=== PATIENT | male | born 1950 | race Caucasian/White ===

== ENCOUNTER 2024-05-07 07:58 | Observation (INO) ==
--- NOTE | 2024-04-04 13:35 | PAT Medication Instructions ---
Medication Instructions Date of Service April 04, 2024 Home Medications aspirin 81 mg capsule 81 mg PO QAM atorvastatin 10 mg tablet 10 mg PO QAM glipizide 10 mg tablet 10 mg PO QAM linagliptin 5 mg tablet (Tradjenta) 5 mg PO QAM metformin 1,000 mg tablet 1,000 mg PO BID metoprolol succinate 100 mg tablet,extended release 24 hr 100 mg PO QPM omeprazole 40 mg capsule,delayed release 40 mg PO BID sacubitril 24 mg-valsartan 26 mg tablet (Entresto) 1 tab PO BID tamsulosin 0.4 mg capsule 0.4 mg PO QAM apixaban 5 mg tablet (Eliquis) 5 mg PO BID furosemide 20 mg tablet 20 mg PO DAILY PRN leg edema MEDICATION INSTRUCTIONS: ASK your prescriber and surgeon aspirin 81 mg capsule 81 mg PO QAM apixaban 5 mg tablet (Eliquis) 5 mg PO BID (for spinal anesthesia: will need to hold Eliquis/apixaban at least 72 hours prior to surgery) DO NOT take the morning of surgery glipizide 10 mg tablet 10 mg PO QAM linagliptin 5 mg tablet (Tradjenta) 5 mg PO QAM sacubitril 24 mg-valsartan 26 mg tablet (Entresto) 1 tab PO BID metformin 1,000 mg tablet 1,000 mg PO BID furosemide 20 mg tablet 20 mg PO DAILY PRN leg edema Take morning of surgery With a small sip of water, OTHERWISE NOTHING TO EAT OR DRINK AFTER MIDNIGHT: tamsulosin 0.4 mg capsule 0.4 mg PO QAM atorvastatin 10 mg tablet 10 mg PO QAM omeprazole 40 mg capsule,delayed release 40 mg PO BID Take evening before surgery sacubitril 24 mg-valsartan 26 mg tablet (Entresto) 1 tab PO BID metformin 1,000 mg tablet 1,000 mg PO BID metoprolol succinate 100 mg tablet,extended release 24 hr 100 mg PO QPM omeprazole 40 mg capsule,delayed release 40 mg PO BID Other Notes If you have any questions please call us at [phone] or [phone] or [phone] or [phone]
--- NOTE | 2024-04-12 09:54 | Anesthesiology Consultation ---
Date of Service April 12, 2024 Assessment & Plan (1) Encounter for pre-operative examination: - Check BSG AM DOS - Infectious disease screening: Per assessment on 04/12/24: No known recent infectious disease contacts or current infectious disease symptoms. - Outpatient joint assessment: Pt currently scheduled for inpatient pathway. If surgeon requests review for outpatient joint pathway, patient is not recommended candidate for outpatient joint program from anesthesia standpoint based on available information. - Apixaban/Eliquis instructions: patient made aware that for neuraxial anesthesia, Apixaban/Eliquis needs to be held 72 hours prior to surgery. Patient voiced understanding/will check if okay with prescriber. - Cardiology visit (03/22/24): "HPI: This is a 73 year old male with history of mild CAD, s/p aortic valve replacement in 2020, nonischemic cardiomyopathy, LVEF 35 to 40%.. 02/16/2024 visit: Patient is not physically active due to knee pain, he notices lower extremity edema recently. He went to PCPs office and was noted to have atrial fibrillation, he was started on Eliquis.. Unspecified atrial fibrillation.. Newly diagnosed.. Heart failure, unspecified.. Cardiomyopathy, unspecified.. Bioprosthetic valve.. Recommendations: Increase Entresto dose.. Continue all other medications.. Low-salt diet.. Check blood pressure on regular basis.. Fluid restriction.. WESLY cardioversion for A-fib.. Follow Up: 1 month" - Pending: * Awaiting cardiology ordered WESLY cardioversion report ([facility], 04/17). * Note written to cardiology to make them aware of upcoming surgery- Awaiting cardiology response/clearance (Dr. Dumas/[facility]). Chart Review Chart Review: Patient seen in Pre Admission Testing Teaching & Discussion Pre-Anesthesia Teaching/Discussion Notes: Instructed NPO after midnight before surgery,except medications with 15 cc of water. Medication instructions provided according to the PAT guidelines. History Surgery Operation Date: 05/07/24 08:00 Proposed Procedures p Right Total Knee Arthroplasty - Joe Pulido DO Height/Weight Height: 6 ft 2 in Weight: 101.9 kg Allergies Allergy/AdvReac Type Severity Reaction Status Date / Time No Known Allergies Allergy Verified 04/02/24 14:03 Medications Home Medications Medication Instructions Recorded Confirmed Last Taken aspirin 81 mg capsule 81 mg PO QAM 11/06/23 09/09/24 11/08/23 atorvastatin 10 mg tablet 10 mg PO QAM 05/30/23 04/02/24 06/01/23 glipizide 10 mg tablet 10 mg PO QAM 05/30/23 04/02/24 06/01/23 linagliptin 5 mg tablet (Tradjenta) 5 mg PO QAM 05/30/23 04/02/24 06/01/23 metformin 1,000 mg tablet 1,000 mg PO BID 05/30/23 04/02/24 06/01/23 metoprolol succinate 100 mg 100 mg PO QPM 05/30/23 04/02/24 06/02/23 06:30 tablet,extended release 24 hr omeprazole 40 mg capsule,delayed 40 mg PO BID 05/30/23 04/02/24 06/02/23 06:30 release sacubitril 24 mg-valsartan 26 mg 1 tab PO BID 05/30/23 04/02/24 06/01/23 tablet (Entresto) tamsulosin 0.4 mg capsule 0.4 mg PO QAM 05/30/23 04/02/24 06/01/23 apixaban 5 mg tablet (Eliquis) 5 mg PO BID 04/02/24 04/02/24 Unknown furosemide 20 mg tablet 20 mg PO DAILY PRN leg edema 04/02/24 04/02/24 Unknown Past Medical History Medical History Aortic valve disease s/p AVR 2020 Echo 01/2024: Bioprosthetic aortic valve- No evidence of significant stenosis, no regurgitation Atrial fibrillation Dx 01/2024, started on Eliquis Follows with Dr. Dumas/[facility] Pt has a procedure scheduled at [facility] (WESLY cardioversion for A.fib?) BPH (benign prostatic hyperplasia) Cardiomyopathy Non-ischemic Diabetes Type 2, NIDDM GERD (gastroesophageal reflux disease) History of heart failure Hyperlipidemia Hypertension Learning disability assists Reading/writing limitations (Can read and write name, can only read a few words) Osteoarthritis Exercise / Class Metabolic Activity III < 4 Walking/Shop/Light housework Past Family History Family History Brother Colorectal cancer Other No family history of adverse response to anesthesia Past Surgical History Surgical History (Updated 04/12/24 @ 10:02 by Gracie Leone) H/O aortic valve replacement [facility] Teri Friedman (2020) H/O left cataract extraction History of esophagogastroduodenoscopy (EGD) Hx of colonoscopy Hx of hand surgery 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 Physical Exam Vital Signs BP 126/84 P 73 TEMP 97.8 SP02 96%RA RESP 16 Physical Full cervical extension range of motion. Full TMJ range of motion. TMD 3 finger breaths Mallampati Score II Dentition: full upper denture, edentulous Lungs: clear throughout to auscultation Cardiac: regular rate, irregularly irregular rhythm, II-III/ systolic murmur Spine: normal Carotid arteries: negative bruit Extremities: no LE edema Lab Results Anesthesia Preop Results Results Anesthesia Widget: WBC 8.38 K/ul (4.8-10.8) 04/12/24 Hgb 12.1 g/dl (14.0-18.0) L 04/12/24 Hct 37.9 % (42.0-52.0) L 04/12/24 Plt 172 K/uL (130-400) 04/12/24 Na 137 mmol/L (136-145) 04/12/24 K 4.6 mmol/L (3.5-5.1) 04/12/24 Cl 105 mmol/L (98-107) 04/12/24 CO2 25 mmol/L (21-32) 04/12/24 BUN 16 mg/dl (6-23) 04/12/24 Creat 1.15 mg/dl (0.6-1.4) 04/12/24 Glucose Level 183 mg/dl (70-99(Fasting)) H 04/12/24 PT 12.7 Seconds (9.0-12.0) H 04/12/24 PTT 31 Seconds (21-31) 04/12/24 INR 1.2 (0.9-1.1) H 04/12/24 HA1c 7.8 % (4.5-5.6) H 04/12/24 Blood Type O Negative 04/12/24 Antibody Screen NEGATIVE 04/12/24 Testing Electrocardiogram Date: 02/16/24 A. fib. 97bpm. LAD. Ventricular conduction delay. Low QRS voltage in precordial leads. Echo 02/21/24* Chest X-Ray Date: 04/12/24 FINDINGS: Cardiomegaly with cardiac valvular prosthesis. Median sternotomy with numerous fractured wires. Atherosclerosis of the aorta. No pneumothorax, pleural effusion, airspace consolidation or pulmonary edema. Spondylitic spurring of the spine. IMPRESSION: Cardiomegaly without acute process. Echocardiogram Date: 02/21/24 EF 35%. RWMA cannot be excluded. Severe LAD. RAD. Bioprosthetic aortic valve- No evidence of significant stenosis, no regurgitation. Moderate to severe TR. IVC dilated. Other Testing Holter monitor Date: 03/07/24 Prevailing rhythm is atrial fibrillation with HR varting between 39 and 188 with average of 103/min, the longest R-R interval 2.5 seconds. Infrequent PVCs.
--- NOTE | 2024-05-03 11:47 | History & Physical Report ---
Date of Service May 03, 2024 Assessment & Plan (1) Osteoarthritis of right knee: We will proceed with a right total knee arthroplasty. Postoperatively he will be started on aspirin for DVT prophylaxis and kept overnight in the hospital for postop medical management. He plans to use energy physical therapy upon discharge. History of Present Illness Chief Complaint: Osteoarthritis of the right knee. Primary Care Provider: Drake Baker PA-C Jez is a pleasant 73-year-old male who has been dealing with chronic increasing bilateral knee pain. He has been treated by another provider in [place] for years. He has had injections of his knees. The injections no longer help. X-rays and clinical examination have been diagnostic for advanced osteoarthritis. After failed conservative treatment, he has elected to proceed with a right total knee arthroplasty. Allergies Allergy/AdvReac Type Severity Reaction Status Date / Time No Known Allergies Allergy Verified 04/02/24 14:03 Home Medications Medication Instructions Recorded Confirmed Type aspirin 81 mg capsule 81 mg PO QAM 05/30/23 04/02/24 History atorvastatin 10 mg tablet 10 mg PO QAM 05/30/23 04/02/24 History glipizide 10 mg tablet 10 mg PO QAM 05/30/23 04/02/24 History linagliptin 5 mg tablet (Tradjenta) 5 mg PO QAM 05/30/23 04/02/24 History metformin 1,000 mg tablet 1,000 mg PO BID 05/30/23 04/02/24 History metoprolol succinate 100 mg 100 mg PO QPM 05/30/23 04/02/24 History tablet,extended release 24 hr omeprazole 40 mg capsule,delayed 40 mg PO BID 05/30/23 04/02/24 History release sacubitril 24 mg-valsartan 26 mg 1 tab PO BID 05/30/23 04/02/24 History tablet (Entresto) tamsulosin 0.4 mg capsule 0.4 mg PO QAM 05/30/23 04/02/24 History apixaban 5 mg tablet (Eliquis) 5 mg PO BID 04/02/24 04/02/24 History furosemide 20 mg tablet 20 mg PO DAILY PRN leg edema 04/02/24 04/02/24 History Past Med/Surg History Problem List Encounter for pre-operative examination Osteoarthritis of right knee BPH loc w urin obs/LUTS Urinary retention Hyperlipidemia Hypertension Type 2 diabetes mellitus Medical History Aortic valve disease s/p AVR 2020 Echo 01/2024: Bioprosthetic aortic valve- No evidence of significant stenosis, no regurgitation History of heart failure Cardiomyopathy Non-ischemic Osteoarthritis Hyperlipidemia Hypertension BPH (benign prostatic hyperplasia) Atrial fibrillation Dx 01/2024, started on Eliquis Follows with Dr. 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 Hx of nasal polypectomy H/O aortic valve replacement [facility] (2020) Family History Brother Colorectal cancer Other No family history of adverse response to anesthesia Social History Smoking Status: Former smoker Tobacco Type: Cigarettes and Smokeless Tobacco (Dip or Chew) Second Hand Exposure: No; Do You Dip or Chew Tobacco: No (Quit years ago); Hx Alcohol Use: No Hx Substance Use: No Preferred Language: [place]er Communication Ability: Impaired Communication Ability Comment: can read and write name, can only read a few words, assists Customs And Border Protection Inspector Required: No Beliefs That Will Affect Care: None Current Living Situation: Spouse Assistive Devices: Denture - Upper Review of Systems All systems reviewed & are unremarkable except as noted in HPI & below. Physical Exam On physical examination of the right knee, he has a varus deformity. He is tenderness palpation of the distal medial femoral condyle and over the medial joint line. Constitutional WD/WN, vitals as above Eyes PERRL, conjunctivae normal, anicteric sclerae ENMT external ear and nose normal, oropharynx normal Neck trachea midline, no thyromegaly Respiratory normal respiratory effort Cardiovascular RRR, no murmur, no edema Gastrointestinal (Abdomen) normal bowel sounds, soft, nontender, no hepatosplenomegaly Psychiatric A+Ox3, euthymic affect Results & Data Results & Data Laboratory Results . Diagnostic Findings X-rays of the right knee show advanced osteoarthritis with joint space narrowing, osteophyte formation, and [id number] tubulation. PG Care Time/CCT Total # of Minutes Spent Total Time Spent with Patient: Total time spent is greater than 50% in coordination of care (as documented) at patient's floor/unit and/or counseling patient: Coding Level of Care Code None Diagnoses Osteoarthritis of right knee M17.11
[~2024-05-07 07:58] MED LIST: BUPIVACAINE 0.5 % 5 MG/1 ML PF 10ML VIAL ONE; ROPIVACAINE 0.5% 5 MG/ML 30 ML VIAL ONE
[2024-05-07] MEDS ORDERED: MIDAZOLAM HCL 1 MG/ML 2ML VIAL ONE (08:32)
[2024-05-07] MEDS ORDERED: fentaNYL citrate PF 100 MCG/2 ML VIAL ONE (08:32)
[2024-05-07] MEDS: ACETAMINOPHEN 500 MG TAB PO SCH ×2 (08:45→14:40)
[2024-05-07] MEDS: GABAPENTIN 300 MG CAP PO SCH (08:45)
[2024-05-07] MEDS: dexAMETHasone**PF** 10 MG/ML VIAL IV SCH (08:45)
[2024-05-07] MEDS: LR 15ML/HR IV SCH (08:46)
[2024-05-07] MEDS: FAMOTIDINE 20 MG TAB PO SCH (08:46)
[2024-05-07] MEDS: LR 60ML/HR IV SCH (08:56)
--- NOTE | 2024-05-07 09:05 | History & Physical Bridge Note ---
Date of Service May 07, 2024 History & Physical Bridge Note I have examined the patient, reviewed the History & Physical and in the interval since the performance of the History & Physical I have noted the following changes of clinical significance: no changes noted
[2024-05-07] MEDS ORDERED: ONDANSETRON INJ 2 MG/ML 2 ML VIAL IV PRN ×2 (09:43→13:55)
[2024-05-07] MEDS ORDERED: ePHEDrine sulfate 50 MG/ML AMP IV PRN (09:43)
[2024-05-07] MEDS ORDERED: fentaNYL citrate PF 100 MCG/2 ML VIAL IV PRN (09:43)
[2024-05-07] MEDS ORDERED: ATROPINE SULFATE 0.1 MG/ML 10ML SYR IV PRN (09:43)
[2024-05-07] MEDS: TRANEXAMIC ACID 1,000 MG **IV Pre-op IV SCH (09:57)
[2024-05-07] MEDS: ceFAZolin 2000MG 2,000 MG/15 ML SYR IV SCH ×2 (10:12→17:25)
[2024-05-07] MEDS ORDERED: PROPOFOL IV EMULSION 10 MG/ML 20 ML VIAL IV ONE ×2 (10:27→11:08)
[2024-05-07] MEDS ORDERED: LIDOCAINE 2% 2 ML VIAL/AMP(20MG/ML) INFIL ONE (10:27)
[2024-05-07] MEDS ORDERED: ONDANSETRON INJ 2 MG/ML 2 ML VIAL ONE (10:27)
[2024-05-07] MEDS: ORTHO JOINT ANESTHETIC ONE (10:50)
[2024-05-07] MEDS: ROPIV 0.5% 246mg, Ketorolac 30mg, EPINEPHrine 0.5mg in NSS INFIL SCH (10:55)
[2024-05-07] MEDS: TRANEXAMIC ACID 1,000 MG **IV Intra-op IV SCH (11:06)
--- NOTE | 2024-05-07 11:11 | Operative Report ---
PG Post Operative Report Pre & Post Diagnosis Operation Date: 05/07/24 10:00 Pre-Op Diagnosis: Osteoarthritis of right knee Post-Op Diagnosis: Osteoarthritis of right knee I identified the patient and participated in the time-out.: Yes Procedure Operation Date: 05/07/24 10:00 Actual Procedures p Right Total Knee Arthroplasty(Right) - Joe Pulido DO Surgeon Joe Pulido DO Pelletizer Operator Joe Brooks PA-C Estimated Blood Loss 30 Findings Consistent with Post-Op Diagnosis Specimens Right femoral and tibial bone Description of Procedure Implants used: I used a Daniel Persona total knee arthroplasty system with a size 8 standard PS femur, E tibia, 31 oval patella, and a size 16 CPS polyethylene bearing. All components were cemented in place with Biomet cement. Boris arrived [facility] for the above procedure. He was seen in the preoperative holding area and the operative extremity was identified and signed. He was given a preoperative antibiotic, TXA, a spinal anesthetic and an adductor nerve block. He was taken back to the operating room and laid on the table in supine position. He was given basic sedation. The operative knee was then prepped and draped in sterile fashion. A timeout was done, and the patient and the operative extremity was properly identified. A midline incision was made directly over the patella. Dissection was taken down to the extensor mechanism. A subvastus arthrotomy was used. The medial retinaculum was released and the fat pad was mostly excised. The knee was flexed and the ACL, PCL, and meniscus were removed. A drill was sent down the center of the femoral canal followed by an intramedullary valentin. Off that valentin a distal femoral cutting block was placed. 9 mm was resected off the distal femur at 5 of valgus. A posterior referencing AP sizing guide was then placed on the distal femur. The femur measured to be a size 8. 2 drill holes were placed in 3 of external rotation. A 4-in-1 cutting block was then impacted into place. Anterior, posterior, and chamfer cuts were then made. The proximal tibia was then exposed. An external tibial alignment guide was placed. A tibial cut guide was then anchored in place and the proximal tibia was then resected. The posterior aspect of the knee was then opened up and any additional meniscus fragments and osteophytes were removed. The tibia measured to be a size E. The tibial plate was then placed in the appropriate rotation and the tibia was drilled and punched. Trial components were then placed. I used a size 16 CPS polyethylene insert. The knee was brought through a full range of motion and felt to be stable. The peg holes for the femoral component were then drilled. The patella was then everted and 9 mm was resected off the posterior aspect of the patella. The patella measured to be a size 31 oval. 3 peg holes were then drilled. A trial patella was placed. The knee was once again brought through a full range of motion and felt to be stable. Trial components were then removed. The surrounding soft tissues were injected with 100 cc of an orthopedic pain control cocktail. All components were then cemented into place with Biomet cement. The final polyethylene insert was then snapped into place. Once cement was dry the tourniquet was deflated. Hemost asis was obtained. A dilute betadyne lavage was then done for 3 minutes. The joint was then irrigated with normal saline solution. The subvastus arthrotomy was then closed with #1 Vicryl suture. The skin was closed with 2-0 Vicryl, 3- 0V lock suture, and maida. A soft compressive dressing was placed. He was then transferred to a hospital bed and taken to the postanesthesia care unit in stable condition. He tolerated the procedure well. Joe Brooks PA-C, was present for the entire procedure. He was critical for patient positioning, prepping, draping, retraction exposure, wound closure and application of sterile dressing. I attest to the content of the Intraoperative Record and any orders documented therein. Any exceptions are noted below.
--- NOTE | 2024-05-07 12:20 | Anesthesiology Progress Note ---
Date of Service May 07, 2024 Anesthesia Post Procedure Vital Signs Vital Signs: Temp Pulse Resp BP Pulse Ox O2 Del Method O2 Flow Rate 05/07/24 12:15 58 L 17 110/65 94 Room Air 05/07/24 12:05 61 12 125/67 95 Room Air 05/07/24 11:55 68 13 120/68 97 Room Air 0 05/07/24 11:45 62 12 117/69 100 Oxymask 4 05/07/24 11:35 62 12 118/65 99 Oxymask 4 05/07/24 11:28 36.3 C L 63 15 118/65 95 Oxymask 4 05/07/24 08:24 36.4 C L 81 18 137/93 97 Room Air Notes Mental Status: alert / awake / arousable Patient Amnestic to Procedure: Yes Nausea / Vomiting: adequately controlled Pain: adequately controlled Airway Patency, RR, SpO2: stable & adequate BP & HR: stable & adequate Hydration State: stable & adequate Neuraxial Anesthesia: was administered Anesthetic Complications: no major complications apparent
[2024-05-07] MEDS ORDERED: PHENYLEPHRINE 100MCG/ML 10ML SYR IV ONE (12:22)
[2024-05-07] MEDS ORDERED: ePHEDrine sulfate 50 MG/5 ML SYR ONE (12:22)
--- NOTE | 2024-05-07 12:47 | XRay Report ---
TWO VIEWS RIGHT KNEE CLINICAL HISTORY: Postoperative examination. FINDINGS: AP and crosstable lateral portable views of the right knee are obtained. A right knee arthr oplasty is in near anatomic alignment. There has been undersurface remodeling of the patella. No acut e fracture is seen. There are expected postoperative changes around the knee including skin clips, s oft tissue edema, and subcutaneous gas. IMPRESSION: Expected postoperative changes status post right knee arthroplasty. No acute fracture is seen. ACT 112: Negative or not required by law. Electronically signed by: Trent Fonseca M.D. 05/07/2024 12:45 PM
[2024-05-07] MEDS ORDERED: METOCLOPRAMIDE HCL INJ 5 MG/ML 2 ML VIAL IV PRN (13:55)
[2024-05-07] MEDS ORDERED: NALOXONE HCL 0.4 MG/1 ML VIAL/CARP IV PRN (13:55)
[2024-05-07] MEDS ORDERED: oxyCODONE HCL IR 5 MG TAB (IMMEDIATE RELEASE) PO PRN (13:55)
[2024-05-07] MEDS ORDERED: MAGNESIUM HYDROXIDE SUSP 30 ML UDC PO PRN (13:55)
[2024-05-07] MEDS ORDERED: FUROSEMIDE 20 MG TAB PO PRN (13:55)
[2024-05-07] MEDS ORDERED: HYDROmorphone INJ 0.5 MG/0.5 ML SYR IV PRN (13:55)
[2024-05-07] MEDS ORDERED: bisacodyL 10 MG SUPP PR PRN (13:55)
[2024-05-07] MEDS ORDERED: PHARMACY GLYCEMIC MGMT CONSULT PRN (13:55)
[2024-05-07] MEDS: SODIUM CHLORIDE 0.9% 1,000 ML IV SCH (14:40)
[2024-05-07] MEDS: LANTUS PER UNIT CHARGE SC ONE ×2 (14:41→22:07)
[2024-05-07] MEDS: INSULIN ASPART PER UNIT CHARGE SC SCH (14:41)
--- NOTE | 2024-05-07 14:42 | Pharmacy Report ---
Pharmacy Glycemic Short Note 2 - Date of Service May 07, 2024 - Glycemic Short BSG Results (Last 24 hours): 05/07/24 05/07/24 08:50 14:19 POC Glucose 140 H 222 H OUTPATIENT ANTIDIABETIC REGIMEN: * Metformin 1g PO BID * Tradjenta 5mg PO daily * Glipizide 10mg PO BID * A1c 7.8% 04/12/24 ASSESSMENT: * 73 YO M, s/p RTKA, type 2 DM, received 10mg IV Dexamethasone pre-op - now with steroid induced hyperglycemia post op. * Will give basal insulin to cover steroid effects now and PRN HS, and tight NovoLog parameters at this time. * Loosen/adjust insulin dosing as steroids wear off. PLAN FOR INPATIENT GLYCEMIC CONTROL: * Hold outpatient oral diabetes medications * Basal insulin * Lantus 30 units SQ x1 now, then 15 units HS for BSG > 180mg/dl - further dosing tomorrow morning if needed * Bolus insulin * NovoLog per scale ACHS or Q6hrs while NPO * Goal Range: Low 110 mg/dL - High 140 mg/dL * Correction Factor: 15 mg/dL/unit * Nutritional / Prandial insulin per carb ratio of 1 unit per 5 grams CHO consumed
[2024-05-07] MEDS: SENNA 8.6 MG TAB PO SCH (20:50)
[2024-05-07] MEDS: VALSARTAN/SACUBITRIL 26/24MG TAB PO SCH (20:50)
[2024-05-07] MEDS: METOPROLOL SUCC 50MG EXT REL TAB PO SCH (20:50)
[2024-05-07] MEDS: DOCUSATE SODIUM 100 MG CAP PO SCH (20:50)
[2024-05-08 07:12] VITALS: PULSE 63; RESP 20; TEMP 98.1; O2SAT 95
--- NOTE | 2024-05-08 07:24 | Orthopedic Progress Note ---
Date of Service May 08, 2024 Assessment & Plan (1) Status post right knee replacement: Overall he is doing very well. He is not having much pain in the right knee. He will be seen by physical therapy today for ambulation and range of motion exercises. The nursing staff can change his dressing after physical therapy. He is on aspirin for DVT prophylaxis. He can be discharged home later today. He will follow-up with orthopedics in 2 weeks. Francisco Escalante was seen and examined at bedside this morning. Overall is doing very well. He is not having much pain in the right knee. He has been up and ambulating to the bathroom. He has no complaints.. Review of Systems All systems reviewed & are unremarkable except as noted in HPI & below. Physical Exam On physical examination of the right knee, the dressing is clean and dry. His leg is out full extension. He has active dorsiflexion plantarflexion of the right ankle.. Results & Data Results & Data Laboratory Results . Diagnostic Findings Postoperative x-rays of the right knee show the prosthesis to be in anatomic alignment without any evidence of fracture complication, or loosening.. PG Care Time/CCT Total # of Minutes Spent Total Time Spent with Patient: Total time spent is greater than 50% in coordination of care (as documented) at patient's floor/unit and/or counseling patient: Coding Level of Care Code 19149 Post Operative Follow-Up Diagnoses Status post right knee replacement Z96.651
--- NOTE | 2024-05-08 07:25 | Discharge Summary ---
Date of Service May 08, 2024 Admission HPI (Per Admitting) Jez is a pleasant 73-year-old male who has been dealing with chronic increasing bilateral knee pain. He has been treated by another provider in [place] for years. He has had injections of his knees. The injections no longer help. X-rays and clinical examination have been diagnostic for advanced osteoarthritis. After failed conservative treatment, he has elected to proceed with a right total knee arthroplasty. Admission Exam (Per Admitting) On physical examination of the right knee, he has a varus deformity. He is tenderness palpation of the distal medial femoral condyle and over the medial joint line. Principal Diagnosis Same as "Discharge Diagnosis" noted below under Discharge Instructions. Discharge Exam On physical examination of the right knee, the dressing is clean and dry. His leg is out full extension. He has active dorsiflexion plantarflexion of the right ankle.. Discharge Data Procedures Performed Operation Date: 05/07/24 10:00 Actual Procedures p Right Total Knee Arthroplasty(Right) - Joe Pulido DO Ordered Studies 05/07/24 05:00 US - OR guided needle placemen Routine Hospital Course (1) Status post right knee replacement: On May 07, 2024 Boris arrived at [facility] and underwent a right knee replacement without complication. He had a spinal anesthetic. Postoperatively he was started on aspirin for DVT prophylaxis and transferred to the general orthopedic floors. His hospital course was uneventful. On postop day #1, his vital signs were stable and his pain was well-controlled. He was able to participate well with physical therapy doing ambulation and range of motion exercises. He was then discharged to home. He will follow-up orthopedics in 2 weeks. PG Care Time/CCT Total # of Minutes Spent Total Time Spent with Patient: Total time spent is greater than 50% in coordination of care (as documented) at patient's floor/unit and/or counseling patient: Discharge Plan Discharge Items Patient Disposition: Home - Self-Care Reason For Visit: Right Knee Degenerative Joint Disease Discharge Diagnosis: Right knee replacement Activity: Per Instructions section Non-emergency contact: Surgeon Call non-emergency contact if: your wound has increased redness and your wound has increased drainage Follow-up/Referrals: Drake Baker PA-C [Primary Care Provider] - Diet: Regular Addtl Attending Provider Instructions: Activity and Therapy Recommendations: * If you are using [facility] then therapy will be provided at your home until they feel you have accomplished all of your goals. * If you are using [facility] then Physical Therapy will be provided until they feel you are ready to start Outpatient Physical Therapy. * If you are not using home therapy then Outpatient Physical Therapy should start about 3-5 days from your day of surgery. Therapy will last about 6-10 weeks * It is important not to put a pillow under your knee when you are relaxing or sleeping. It is just as important to make sure you are getting your knee perfectly straight as it is to regain your knee bend. * You were shown a series of exercises in the hospital. Do these exercises three times each day including the exercises you were shown in physical therapy. * Get up and walk several times each day. For the first four weeks, try not to stand or walk for more than one hour at a time. If you do stand or walk for more than one hour, you will not hurt anything, but your leg will likely swell. * As you feel comfortable, you may change from the walker or crutches to a cane and then to independent walking. Medications: * Narcotic You will likely be sent home from the hospital with a prescription for the narcotic pain medication that worked best throughout your stay. * Cefadroxil -take the antibiotic twice a day for 10 days to help prevent infection. * Continue your Eliquis as prescribed. * Other medications may be prescribed for specific circumstances. If you have any questions, please call the office at . * Resume previous home medications unless otherwise instructed TEDs/Elastic Stockings: The white elastic stockings help limit swelling and prevent blood clots from forming in your legs.~ The more you wear them, the more they work. Wear them for six weeks. Dressing Care: The dressing can be changed after physical therapy on postop day #1. Daily dry dressing changes for a few days, especially if the incision is still draining some. If the incision is not draining then you may leave the maida open to air. If there is a little bit of drainage or if the maida are getting stuck on your clothing then cover the incision with a dry dressing. The maida will be removed at your 2 week follow-up appointment. Showering: You may shower 5 days from the day of surgery as long as the incision is no longer draining. You may shower with the maida exposed. Let soapy water run over the maida and pat them dry. Do not scrub or soak the incision. Diet: You may resume your previous diet. Things To Watch For: * Drainage from the incision site that occurs more than one week after your surgery. * Increased redness at the incision site. * Fever above 102 degrees Fahrenheit. * Unusual chest pain or shortness of breath. * Call [facility] at with any of the above problems Follow-Up Visit: Follow-up with Dr. Pulido's PA (Joe Brooks) 2-3 weeks after your day of surgery. He will remove your maida and answer any questions. If you have any additional questions or concerns, Dr Pulido is usually in the office at the same time and will be available An appointment was probably scheduled when you signed-up for surgery in the office. If you have any questions call Office Instructions: More detailed instructions as well as Frequently Asked Questions were provided in a folder by our office when you signed-up for surgery. Please review these instructions when you get home. If you have any further questions or concerns, please feel free to call the office at [phone] Pending Studies at Discharge: No Stand-Alone Forms: My [facility], Smoking Cessation Medications and DC Order Prescriptions: New oxycodone 5 mg Tablet 5 mg PO Q4H PRN (Reason: pain) Qty: 30 0RF cefadroxil 500 mg capsule 500 mg PO BID 10 Days Qty: 20 0RF Continued atorvastatin 10 mg tablet 10 mg PO QAM glipizide 10 mg Tablet 10 mg PO QAM metoprolol succinate 100 mg tablet extended release 24 hr 100 mg PO QPM omeprazole 40 mg Capsule,Delayed Release(Dr/Ec) 40 mg PO BID tamsulosin 0.4 mg Capsule 0.4 mg PO QAM metformin 1,000 mg Tablet 1,000 mg PO BID Tradjenta 5 mg tablet 5 mg PO QAM Entresto 24-26 mg tablet 1 tab PO BID aspirin 81 mg Capsule 81 mg PO QAM Eliquis 5 mg Tablet 5 mg PO BID furosemide 20 mg Tablet 20 mg PO DAILY PRN (Reason: leg edema) Discharge Orders: Discharge Order (Routine); Ordered 05/08/24 Ordered By: Joe Pulido Admission Data Admit Date/Time: 05/07/24 11:36 Attending Provider: Joe Pulido Admit Provider: Joe Pulido Primary Care Provider: Drake Baker
[2024-05-08] MEDS: MULTIVITAMIN TAB PO SCH (08:02)
[2024-05-08] MEDS: ATORVASTATIN 10 MG TAB PO SCH (08:02)
[2024-05-08] MEDS: ASPIRIN 81 MG ECTAB PO SCH (08:02)
[2024-05-08] MEDS: APIXABAN 5 MG TABLET PO SCH (08:02)
[2024-05-08] MEDS: TAMSULOSIN HCL 0.4 MG CAP PO SCH (08:02)
[2024-05-08 09:59] VITALS: BP 124/73
== END 2024-05-08 12:26 | disposition home or self-care (01) ==
LOC: 3E 07:58 → ASU 07:58

== ENCOUNTER 2024-05-31 18:10 | Observation (INO) ==
--- NOTE | 2024-05-31 19:12 | Emergency Department Note ---
Impression & Plan BRADSHAW (dyspnea on exertion), Elevated brain natriuretic peptide (BNP) level, Dizziness, Bilateral edema of lower extremity ED Provider Note ED Provider Note NAME: GILDA ROMANO AGE:73 SEX: Male : 1950 ARRIVES VIA: Private vehicle INFORMANT: Patient ED PROVIDER(s): Nakia Freeman DO CHIEF COMPLAINT: Upper back pain, lightheadedness, shortness of breath HPI: This is a 73-year-old male presents emergency department with several complaints including upper back pain that began several days ago, intermittent lightheadedness, shortness of breath with any exertion. Patient denies chest pain, abdominal pain, nausea or vomiting, change in urine or change in stools. Patient does have significant past cardiac history and is anticoagulated due to a history of atrial fibrillation. Three weeks ago he did undergo knee surgery with Dr. Pulido, and states he has been feeling well and feels he is healing up from that procedure. He has had slightly increased lower extremity edema since then. He denies missing or skipping any daily doses of his Eliquis or aspirin. Patient denies any prior history of congestive heart failure. States he used to intermittently take a "water pill" at home when his legs to be swollen. 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 He denies any trauma or injury. He denies any known sick contacts. PAST MEDICAL HISTORY:See Below PAST SURGICAL HISTORY:See Below FAMILY HISTORY:See Below SOCIAL HISTORY:See Below HOME MEDICATIONS:See Below ALLERGIES:See Below VITALS:See Below PHYSICAL EXAMINATION: GENERAL: alert, well appearing, well nourished, no distress, non-toxic EYE EXAM: normal conjunctiva, PERRL and EOM's grossly intact OROPHARYNX: no exudate, no erythema, lips, buccal mucosa, and tongue normal and mucous membranes are moist NECK: supple, no nuchal rigidity, no adenopathy, non-tender LUNGS: Clear to auscultation. Normal chest wall mechanics, no w/r/r HEART: no murmurs, S1 normal and S2 normal ABDOMEN: abdomen soft, non-tender, normo-active bowel sounds, no masses, no rebound or guarding. BACK: Back is symmetrical on inspection and there is no deformity, no midline tenderness, no CVA tenderness. SKIN: no rashes, petechiae, orbruising UPPER EXTREMITIES: upper extremities are grossly normal. FROM, nml pulses b/l. LOWER EXTREMITIES: FROM, nml pulses b/l. Healing vertical midline incision noted over the right knee consistent with recent surgery, no significant joint effusion, no crepitus, no surrounding erythema, mild distal lower extremity edema trace to 1+. NEURO EXAM: Normal sensorium, cranial nerves II-XII grossly intact, normal speech, no facial droop,nogross weakness of arms, no gross weakness of legs. Gross sensation intact. No ataxia. Vital Signs: reviewed and remarkable Differential Diagnosis: pneumonia, bronchitis, COPD/Asthma exacerbation, pneumothorax, pulmonary embolism, congestive heart failure, acute coronary syndrome, as well as others were considered MEDICAL DECISION MAKING: This is a 73-year-old male presents emergency department due to concern for increased lower extremity edema, dyspnea on exertion, and lightheadedness. Patient with significant cardiac history. Upon my bedside evaluation he states all symptoms had resolved. He was afebrile and hemodynamically stable, no increased work of breathing or hypoxia noted. Patient with a well-appearing and healing incision noted over the right knee from recent surgery. Labs drawn and sent, IV established, EKG and chest ray performed at bedside interpreted by me and patient monitored on telemetry. Patient's labs and imaging reassuring however he was noted to have an elevated BNP. Patient states he has not used his as needed diuretic in several months despite increased lower extremity edema since undergoing knee surgery 3 weeks ago. He did denies missing or skipping any doses of his anticoagulation. He denies bleeding from any source. Patient initially reported feeling improved here and was ambulatory with steady gait without any hypoxia or lightheadedness. He was given a dose of furosemide here in states he did urinate several times. I did discuss diuretic dosing and close follow-up with on-call cardiology who was in agreement with the plan. Upon further discussion with patient and at bedside, I did unhook the patient and allowed him to ambulate further around the room, he became abruptly dizzy, short of breath, and we assisted him back into bed. In light of this, I do not feel discharge and close outpatient follow-up would be reasonable at this time especially given we are headed into the weekend. I discussed with he and his additional inpatient monitoring and they are in agreement. Case discussed with the hospitalist team for additional evaluation and management. Consultation(s): 0200: Discussed with Dr. Davis. Agrees if patient comfortable and no resp distress, could take furosemide daily for 1 week and have a recheck by PCP or cardiology. 0235: [facility] additional evaluation and management. ER Treatment Provided: See below Diagnostics Interpreted By Me: -ECG: Atrial fibrillation at 97, leftward axis, normal intervals, no acute ST/T wave changes -Cardiac Monitoring: An order was placed for continuous cardiac monitoring. The monitor shows a rate of 80 with a.fib rhythm. -Laboratory studies: As stated above and show below. -Imaging studies: X-ray Chest: A single view study of the chest was reviewed and was negative for cardiomegaly, focal infiltrate, effusion, pulmonary edema, or wide mediastinum. Triage Nursing Note Reviewed Prior/Outside Records Reviewed -prior echo from January 2024 revealed an ejection fraction of 35% Past Med/Surg History Problem List (Updated 06/01/24 @ 03:45 by Nakia Freeman DO) Bilateral edema of lower extremity (Acute) Dizziness (Acute) Elevated brain natriuretic peptide (BNP) level (Acute) BRADSHAW (dyspnea on exertion) (Acute) Status post right knee replacement (~04/2024) Osteoarthritis of right knee BPH loc w urin obs/LUTS Urinary retention Hyperlipidemia Hypertension Type 2 diabetes mellitus Medical History Aortic valve disease s/p AVR 2020 Echo 01/2024: Bioprosthetic aortic valve- No evidence of significant stenosis, no regurgitation History of heart failure Cardiomyopathy Non-ischemic Osteoarthritis Hyperlipidemia Hypertension BPH (benign prostatic hyperplasia) Atrial fibrillation Dx 01/2024, started on Eliquis Follows with Dr. 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 replacement [facility]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) Family History Brother Colorectal cancer Other No family history of adverse response to anesthesia Social History Smoking Status: Never smoker Tobacco Type: Cigarettes and Smokeless Tobacco (Dip or Chew) Second Hand Exposure: No; Do You Dip or Chew Tobacco: No (Quit years ago); Hx Alcohol Use: No Hx Substance Use: No Preferred Language: Wolof Communication Ability: Effective Communication Ability Comment: can read and write name, can only read a few words, assists 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: No Beliefs That Will Affect Care: None Current Living Situation: Spouse Feels Safe at Home: Yes Assistive Devices: Walker Allergies Allergies Allergy/AdvReac Type Severity Reaction Status Date / Time No Known Allergies Allergy Verified 05/07/24 08:36 Home Meds Home Medications Medication Instructions Recorded Confirmed aspirin 81 mg capsule 81 mg PO QAM 05/30/23 05/07/24 atorvastatin 10 mg tablet 10 mg PO QAM 05/30/23 05/07/24 glipizide 10 mg tablet 10 mg PO QAM 05/30/23 05/07/24 linagliptin 5 mg tablet (Tradjenta) 5 mg PO QAM 05/30/23 05/07/24 metformin 1,000 mg tablet 1,000 mg PO BID 05/30/23 05/07/24 metoprolol succinate 100 mg 100 mg PO QPM 05/30/23 05/07/24 tablet,extended release 24 hr omeprazole 40 mg capsule,delayed 40 mg PO BID 05/30/23 05/07/24 release sacubitril 24 mg-valsartan 26 mg 1 tab PO BID 05/30/23 05/07/24 tablet (Entresto) tamsulosin 0.4 mg capsule 0.4 mg PO QAM 05/30/23 05/07/24 apixaban 5 mg tablet (Eliquis) 5 mg PO BID 04/02/24 05/07/24 furosemide 20 mg tablet 20 mg PO DAILY PRN leg edema 04/02/24 05/07/24 Previous Rx's Medication Instructions Recorded oxycodone 5 mg tablet 5 mg PO Q4H PRN pain #30 tabs 05/07/24 hydrocodone 5 mg-acetaminophen 325 1 tab PO Q6H PRN pain #20 tabs 05/22/24 mg tablet Results & Data (ED) Vital Signs Vital Signs - 24 hr 05/31/24 18:16 05/31/24 18:44 05/31/24 18:45 Pulse Rate 95 H Pulse Rate [Apical] Respiratory Rate 18 Respiratory Effort / Characteristics Non-Labored Respiratory Depth Normal Respiratory Pattern Regular Blood Pressure 103/70 Blood Pressure [Left Arm] Blood Pressure Mean 81 Blood Pressure Mean [Left Arm] Pulse Oximetry 94 Pulse Oximetry [Exercises] Oxygen Delivery Method Room Air Sepsis Recent Fever Within 48 Hours No Sepsis New/Unexplained Change in Mental Status No Sepsis Action Taken by Nursing No Action Required 05/31/24 18:49 05/31/24 19:18 05/31/24 20:36 Pulse Rate 105 H Pulse Rate [Apical] 80 78 Respiratory Rate 16 16 Respiratory Effort / Characteristics Non-Labored Spontaneous Non-Labored Spontaneous Respiratory Depth Normal Normal Respiratory Pattern Regular Regular Blood Pressure Blood Pressure [Left Arm] 124/75 124/69 Blood Pressure Mean Blood Pressure Mean [Left Arm] 91 87 Pulse Oximetry 95 94 Pulse Oximetry [Exercises] Oxygen Delivery Method Room Air Sepsis Recent Fever Within 48 Hours Sepsis New/Unexplained Change in Mental Status Sepsis Action Taken by Nursing 05/31/24 22:10 05/31/24 22:44 06/01/24 00:03 Pulse Rate 79 Pulse Rate [Apical] 79 Respiratory Rate 15 Respiratory Effort / Characteristics Non-Labored Spontaneous Respiratory Depth Normal Respiratory Pattern Regular Blood Pressure Blood Pressure [Left Arm] 123/70 Blood Pressure Mean Blood Pressure Mean [Left Arm] 87 Pulse Oximetry 95 Pulse Oximetry [Exercises] 95 Oxygen Delivery Method Room Air Room Air Sepsis Recent Fever Within 48 Hours Sepsis New/Unexplained Change in Mental Status Sepsis Action Taken by Nursing 06/01/24 00:22 06/01/24 02:30 Pulse Rate Pulse Rate [Apical] 90 82 Respiratory Rate 19 18 Respiratory Effort / Characteristics Respiratory Depth Respiratory Pattern Blood Pressure Blood Pressure [Left Arm] 107/65 117/80 Blood Pressure Mean Blood Pressure Mean [Left Arm] 79 92 Pulse Oximetry 94 95 Pulse Oximetry [Exercises] Oxygen Delivery Method Sepsis Recent Fever Within 48 Hours Sepsis New/Unexplained Change in Mental Status Sepsis Action Taken by Nursing Laboratory Data 05/31/24 18:37 05/31/24 18:37 Lab Results 05/31/24 05/31/24 06/01/24 Range/Units 18:37 18:41 01:34 WBC 9.26 (4.8-10.8) K/ul RBC 4.72 (4.70-6.10) M/uL Hgb 13.0 L (14.0-18.0) g/dl Hct 39.5 L (42.0-52.0) % MCV 83.7 (80.0-100.0) fL MCH 27.5 (25.0-34.0) pg MCHC 32.9 (32.0-36.0) g/dL RDW Std Deviation 47.2 H (36.4-46.3) fL RDW Coeff of Garo 15.7 H (11.5-14.5) % Plt Count 266 (130-400) K/uL MPV 9.9 (9.4-12.4) fL Immature Gran % (Auto) 0.4 % Neut % (Auto) 65.3 % Lymph % (Auto) 23.3 % [place] % (Auto) 8.3 % Eos % (Auto) 2.3 % Baso % (Auto) 0.4 % Neut # (Auto) 6.04 (1.40-6.50) K/uL Lymph # (Auto) 2.16 (1.20-3.40) K/uL [place] # (Auto) 0.77 H (0.11-0.59) K/uL Eos # (Auto) 0.21 (0.00-0.50) K/uL Baso # (Auto) 0.04 (0.00-0.20) K/uL Immature Gran # (Auto) 0.04 (0.01-0.20) K/uL PT 11.5 (9.0-12.0) Seconds INR 1.1 (0.9-1.1) Sodium 137 (136-145) mmol/L Potassium 4.1 (3.5-5.1) mmol/L Chloride 104 (98-107) mmol/L Carbon Dioxide 23 (21-32) mmol/L Anion Gap 10 (3-11) BUN 23 (6-23) mg/dl Creatinine 1.63 H (0.6-1.4) mg/dl Est Cr Clr Drug Dosing Not Reportable eGFR 44.49 BUN/Creatinine Ratio 14.1 (10-20) Glucose 246 H (70-99(Fasting)) mg/dl Calcium 9.3 (8.6-10.3) mg/dl Magnesium 1.5 L (1.7-2.4) mg/dl Total Bilirubin 0.5 (0.2-1.0) mg/dl AST 14 (13-39) U/L ALT 13 (7-52) U/L Alkaline Phosphatase 87 (34-104) U/L Troponin I High Sens 10.3 (0-20) pg/ml B-Natriuretic Peptide 423 H (0-100) pg/ml Total Protein 7.3 (6.0-8.3) gm/dl Albumin 3.8 (3.4-5.0) gm/dl Globulin 3.5 (2.5-4.0) gm/dl Albumin/Globulin Ratio 1.1 (0.9-2) Lipase 55 (11-82) U/L TSH 4.227 (0.300-4.500) uIu/ml Urine Color Yellow Urine Appearance Clear (Clear) Urine pH 5.0 (4.5-7.5) Ur Specific [place] 1.008 (1.000-1.030) Urine Protein Negative (Negative) Urine Glucose (UA) Negative (Negative) Urine Ketones Negative (Negative) Urine Blood Negative (Negative) Urine Nitrite Negative (Negative) Urine Bilirubin Negative (Negative) Urine Urobilinogen Negative (Negative) Ur Leukocyte Esterase Negative (Negative) Adenovirus (PCR) Not Detected (NotDetected) B. pertussis DNA (PCR) Not Detected (NotDetected) B.parapertussis DNA PCR Not Detected (NotDetected) C. pneumoniae DNA (PCR) Not Detected (NotDetected) Coronavirus OC43 (PCR) Not Detected (NotDetected) Coronavirus HKU1 (PCR) Not Detected (NotDetected) Coronavirus 229E (PCR) Not Detected (NotDetected) SARS-CoV-2 (PCR) Not Detected (NotDetected) Coronavirus NL63 (PCR) Not Detected (NotDetected) Human Metapneumovir PCR Not Detected (NotDetected) Influenza Type A (PCR) Not Detected (NotDetected) Influenza Type B (PCR) Not Detected (NotDetected) M. pneumoniae (PCR) Not Detected (NotDetected) Parainfluenza 1 (PCR) Not Detected (NotDetected) Parainfluenza 2 (PCR) Not Detected (NotDetected) Parainfluenza 3 (PCR) Not Detected (NotDetected) Parainfluenza 4 (PCR) Not Detected (NotDetected) RSV (PCR) Not Detected (NotDetected) Entero/Rhino (PCR) Not Detected (NotDetected) Administered Medications Discontinued Medications Furosemide (Furosemide Inj 20 Mg/2 Ml Vial) 20 mg IV ONE ONE Stop: 05/31/24 20:59 Last Admin: 05/31/24 21:31 Dose: 20 mg Documented By: ISABEL Magnesium Sulfate/Dextrose (Magnesium Sulfate / D5w) 1 gm in 100 mls @ 100 mls/hr IV NOW STA Stop: 05/31/24 20:54 Last Infusion: 06/01/24 00:05 Dose: Infused Documented By: Admin: 05/31/24 20:03 Dose: 100 mls/hr Documented By: MED Imaging Data Radiologist's Impression: Chest X-Ray 05/31/24 19:04 Exam(s): XR CXR 1 VIEW EXAM: XR Chest, 1 View CLINICAL HISTORY: sob. TECHNIQUE: Frontal view of the chest. COMPARISON: Chest 2 views 04/12/2024 FINDINGS: Lungs: Minimal curvilinear changes at the left lung base overlying the cardiac silhouette. No focal airspace consolidation. The pulmonary vasculature is unremarkable. Pleural space: Unremarkable. No pneumothorax. No large pleural effusion. Heart: The cardiac silhouette is stable with evidence of aortic valve replacement. Mediastinum: No significant abnormality identified. The trachea is midline. Bones/joints: Stable disruption of several sternal wires, stable. No acute fracture. IMPRESSION: Minimal curvilinear changes at the left lung base overlying the cardiac silhouette, presumed subsegmental atelectasis. No focal airspace consolidation. The pulmonary vasculature is unremarkable. No pleural effusion or pneumothorax. Electronically signed by: Alexi Martinez MD 05/31/24 20:24 PM Discharge Plan Visit Data Chief Complaint: Shortness of Breath/Dyspnea Stated Complaint: SOB, NECK PAIN, BLURRY VISION ED Provider: Nakia Freeman Discharge Problem: BRADSHAW (dyspnea on exertion), Elevated brain natriuretic peptide (BNP) level, Dizziness, Bilateral edema of lower extremity Forms Stand Alone Forms: My [facility] Prescriptions Prescriptions: No Action hydrocodone-acetaminophen 5-325 mg tablet 1 tab PO Q6H PRN (Reason: pain) Qty: 20 0RF atorvastatin 10 mg tablet 10 mg PO QAM glipizide 10 mg Tablet 10 mg PO QAM metoprolol succinate 100 mg tablet extended release 24 hr 100 mg PO QPM omeprazole 40 mg Capsule,Delayed Release(Dr/Ec) 40 mg PO BID tamsulosin 0.4 mg Capsule 0.4 mg PO QAM metformin 1,000 mg Tablet 1,000 mg PO BID Tradjenta 5 mg tablet 5 mg PO QAM Entresto 24-26 mg tablet 1 tab PO BID aspirin 81 mg Capsule 81 mg PO QAM Eliquis 5 mg Tablet 5 mg PO BID furosemide 20 mg Tablet 20 mg PO DAILY PRN (Reason: leg edema) oxycodone 5 mg Tablet 5 mg PO Q4H PRN (Reason: pain) Qty: 30 0RF Referrals Referrals: Drake Baker P[facility] [Primary Care Provider] -
[2024-05-31 19:33] LABS: Alanine Aminotransferase 13 U/L (7-52); Albumin Globulin Ratio 1.1 (0.9-2); Albumin Level 3.8 gm/dl (3.4-5.0); Alkaline Phosphatase 87 U/L (34-104); Anion Gap 10 (3-11); Aspartate Aminotransferase 14 U/L (13-39); BUN Creatinine Ratio 14.1 (10-20); Bilirubin,Total 0.5 mg/dl (0.2-1.0); Blood Urea Nitrogen 23 mg/dl (6-23); Calcium 9.3 mg/dl (8.6-10.3); Carbon Dioxide 23 mmol/L (21-32); Chloride 104 mmol/L (98-107); Globulin 3.5 gm/dl (2.5-4.0); Glucose 246 mg/dl (70-99(Fasting)); Lipase 55 U/L (11-82); Magnesium 1.5 mg/dl (1.7-2.4); Potassium 4.1 mmol/L (3.5-5.1); Sodium 137 mmol/L (136-145); Total Protein 7.3 gm/dl (6.0-8.3)
[2024-05-31 19:37] LABS: Basophils # (auto) 0.04 K/uL (0.00-0.20); Basophils % (auto) 0.4 %; Eosinophils # (auto) 0.21 K/uL (0.00-0.50); Eosinophils % (auto) 2.3 %; Hematocrit (blood only) 39.5 % (42.0-52.0); Immature Granulocytes # (auto) 0.04 K/uL (0.01-0.20); Immature Granulocytes % (auto) 0.4 %; Lymphocytes # (auto) 2.16 K/uL (1.20-3.40); Lymphocytes % (auto) 23.3 %; Mean Corpuscular Hemoglobin 27.5 pg (25.0-34.0); Mean Corpuscular Hgb Conc 32.9 g/dL (32.0-36.0); Mean Corpuscular Volume 83.7 fL (80.0-100.0); Mean Platelet Volume 9.9 fL (9.4-12.4); Monocytes # (auto) 0.77 K/uL (0.11-0.59); Monocytes % (auto) 8.3 %; Neutrophils # (auto) 6.04 K/uL (1.40-6.50); Neutrophils % (auto) 65.3 %; Platelet Count 266 K/uL (130-400); RDW Coefficient of Variation 15.7 % (11.5-14.5); RDW Standard Deviation 47.2 fL (36.4-46.3); Red Blood Count 4.72 M/uL (4.70-6.10); White Blood Count 9.26 K/ul (4.8-10.8)
[2024-05-31 19:41] LABS: INR 1.1 (0.9-1.1); Prothrombin Time 11.5 Seconds (9.0-12.0)
[2024-05-31 19:42] LABS: Troponin I High Sensitivity 10.3 pg/ml (0-20)
[2024-05-31 19:51] LABS: Thyroid Stimulating Hormone 4.227 uIu/ml (0.300-4.500)
[2024-05-31] MEDS: MAGNESIUM SULFATE / D5W 1 GM/100 ML BAG IV STA (20:03)
[2024-05-31 20:20] LABS: Adenovirus PCR Not Detected (NotDetected); Bordetella parapertussis PCR Not Detected (NotDetected); Bordetella pertussis PCR Not Detected (NotDetected); Chlamydia pneumoniae PCR Not Detected (NotDetected); Coronavirus 229E PCR Not Detected (NotDetected); Coronavirus CoV-2 (COVID19)PCR Not Detected (NotDetected); Coronavirus HKU1 PCR Not Detected (NotDetected); Coronavirus NL63 PCR Not Detected (NotDetected); Coronavirus OC43PCR Not Detected (NotDetected); Human Metapneumovirus PCR Not Detected (NotDetected); Influenza A PCR Not Detected (NotDetected); Influenza B PCR Not Detected (NotDetected); Mycoplasma pneumoniae PCR Not Detected (NotDetected); Parainfluenza Virus 1 PCR Not Detected (NotDetected); Parainfluenza Virus 2 PCR Not Detected (NotDetected); Parainfluenza Virus 3 PCR Not Detected (NotDetected); Parainfluenza Virus 4 PCR Not Detected (NotDetected); Respiratory Syncytial VirusPCR Not Detected (NotDetected); Rhinovirus/Enterovirus PCR Not Detected (NotDetected)
--- NOTE | 2024-05-31 20:24 | XRay Report ---
Exam(s): XR CXR 1 VIEW EXAM: XR Chest, 1 View CLINICAL HISTORY: sob. TECHNIQUE: Frontal view of the chest. COMPARISON: Chest 2 views 04/12/2024 FINDINGS: Lungs: Minimal curvilinear changes at the left lung base overlying the cardiac silhouette. No focal airspace consolidation. The pulmonary vasculature is unremarkable. Pleural space: Unremarkable. No pneumothorax. No large pleural effusion. Heart: The cardiac silhouette is stable with evidence of aortic valve replacement. Mediastinum: No significant abnormality identified. The trachea is midline. Bones/joints: Stable disruption of several sternal wires, stable. No acute fracture. IMPRESSION: Minimal curvilinear changes at the left lung base overlying the cardiac silhouette, presumed subsegmental atelectasis. No focal airspace consolidation. The pulmonary vasculature is unremarkable. No pleural effusion or pneumothorax. Electronically signed by: Alexi Martinez MD 05/31/24 20:24 PM
[2024-05-31] MEDS: FUROSEMIDE INJ 20 MG/2 ML VIAL IV ONE (21:31)
[2024-06-01 01:54] LABS: Appearance Urine Clear (Clear); Bilirubin Urine Negative (Negative); Blood Urine Negative (Negative); Color Urine Yellow; Glucose Urine UA Negative (Negative); Ketones Urine Negative (Negative); Leukocyte Esterase Urine Negative (Negative); Nitrite Urine Negative (Negative); Protein Urine Negative (Negative); Specific Gravity Urine 1.008 (1.000-1.030); Urobilinogen Urine Negative (Negative)
--- NOTE | 2024-06-01 03:04 | History & Physical Report ---
Date of Service June 01, 2024 Assessment & Plan (1) Acute kidney injury superimposed on CKD: (2) BPH loc w urin obs/LUTS: (3) HFrEF (heart failure with reduced ejection fraction): (4) Hypertension: (5) Hyperlipidemia: (6) Hyperglycemia due to type 2 diabetes mellitus: (7) Aortic valve disease: (8) Atrial fibrillation: (9) Hypomagnesemia: Plan Acute kidney injury with dehydration and hypotension- Creatinine 1.63 on admission, with base 1.15 He had been given furosemide 20 mg IV from the ED, and further will be held Blood pressure dropped to the lowest of 97/64- Placed on NSS at 80 mL/h x 1 L, being careful to monitor physical examination, as EF is 35% noted on echocardiogram from 02/14/2024 Patient reports having significant diarrhea the day prior to admission, which is likely to contribute significantly to his dehydration and hypotension symptoms Atrial fibrillation/HFrEF/hypertension- Overnight to hold Entresto, metoprolol succinate, with plans to improve when hydration status improves Will continue Eliquis Hypomagnesemia, mag 1.5, received magnesium sulfate IV, then recheck laboratories in the a.m. Patient did undergo WESLY with cardioversion on 04/17/2024, but presently is in atrial fibrillation Hyperglycemia and diabetes mellitus- Glucose 246 on admission Hold oral glipizide, Tradjenta and metformin Placed on glargine and SSI as noted History of Present Illness Chief Complaint: The patient presents to the emergency department with complaint of this, shortness of breath back pain that began several days ago Primary Care Provider: Drake Baker PA-C The patient is a 73-year-old male with history including status post right total knee arthroplasty on 05/07/2024, BPH with LUTS, hyperlipidemia, hypertension, diabetes mellitus type 2, HFrEF with ejection fraction 35%, status post AVR and GERD. The patient presents to the emergency department with symptoms as noted above. He reports that he has recovered well from his recent right knee replacement surgery. Significant laboratory workup in the emergency department included a creatinine 1.63, with base 1.15, magnesium of 1.5, and a glucose of 246. BioFire testing was negative, urinalysis was negative Allergies Allergy/AdvReac Type Severity Reaction Status Date / Time No Known Allergies Allergy Verified 05/07/24 08:36 Home Medications Medication Instructions Recorded Confirmed Type aspirin 81 mg capsule 81 mg PO QAM 05/30/23 05/07/24 History atorvastatin 10 mg tablet 10 mg PO QAM 05/30/23 05/07/24 History glipizide 10 mg tablet 10 mg PO QAM 05/30/23 05/07/24 History linagliptin 5 mg tablet (Tradjenta) 5 mg PO QAM 05/30/23 05/07/24 History metformin 1,000 mg tablet 1,000 mg PO BID 05/30/23 05/07/24 History metoprolol succinate 100 mg 100 mg PO QPM 05/30/23 05/07/24 History tablet,extended release 24 hr omeprazole 40 mg capsule,delayed 40 mg PO BID 05/30/23 05/07/24 History release sacubitril 24 mg-valsartan 26 mg 1 tab PO BID 05/30/23 05/07/24 History tablet (Entresto) tamsulosin 0.4 mg capsule 0.4 mg PO QAM 05/30/23 05/07/24 History apixaban 5 mg tablet (Eliquis) 5 mg PO BID 04/02/24 05/07/24 History furosemide 20 mg tablet 20 mg PO DAILY PRN leg edema 04/02/24 05/07/24 History oxycodone 5 mg tablet 5 mg PO Q4H PRN pain #30 tabs 05/07/24 Rx hydrocodone 5 mg-acetaminophen 325 1 tab PO Q6H PRN pain #20 tabs 05/22/24 05/22/24 Rx mg tablet Past Med/Surg History Problem List (Updated 06/01/24 @ 06:20 by Tremaine Villanueva MD) Hypomagnesemia Aortic valve disease s/p AVR 2020 Echo 01/2024: Bioprosthetic aortic valve- No evidence of significant stenosis, no regurgitation Hyperglycemia due to type 2 diabetes mellitus Atrial fibrillation Dx 01/2024, started on Eliquis Follows with Dr. Dumas/[facility] Pt has a procedure scheduled at [facility] (WESLY cardioversion for A.fib?) HFrEF (heart failure with reduced ejection fraction) Acute kidney injury superimposed on CKD Bilateral edema of lower extremity (Acute) Dizziness (Acute) Elevated brain natriuretic peptide (BNP) level (Acute) BRADSHAW (dyspnea on exertion) (Acute) Status post right knee replacement (~04/2024) Osteoarthritis of right knee BPH loc w urin obs/LUTS Urinary retention Hyperlipidemia Hypertension Type 2 diabetes mellitus Medical History Aortic valve disease s/p AVR 2020 Echo 01/2024: Bioprosthetic aortic valve- No evidence of significant stenosis, no regurgitation History of heart failure Cardiomyopathy Non-ischemic Osteoarthritis Hyperlipidemia Hypertension BPH (benign prostatic hyperplasia) Atrial fibrillation Dx 01/2024, started on Eliquis Follows with Dr. 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), age 20s Hx of nasal polypectomy H/O aortic valve replacement [facility] Teri Friedman (2020) Family History Brother Colorectal cancer Other No family history of adverse response to anesthesia Social History Smoking Status: Never smoker Tobacco Type: Cigarettes and Smokeless Tobacco (Dip or Chew) Second Hand Exposure: No; Do You Dip or Chew Tobacco: No (Quit years ago); Hx Alcohol Use: No Hx Substance Use: No Preferred Language: Azeri Communication Ability: Effective Communication Ability Comment: can read and write name, can only read a few words, assists Chair Required: No Beliefs That Will Affect Care: None Current Living Situation: Spouse Feels Safe at Home: Yes Assistive Devices: Walker Review of Systems Review of Systems: The patient denies chest pain, palpitations, cough, lower extremity swelling, sore throat, fevers, chills, sweats, nausea, vomiting, diarrhea , constipation, abdominal pain, pelvic pain, blood in urine or stool, dysuria, urinary frequency or urgency, memory loss, loss of consciousness, rash, abnormal bruising or bleeding, focal weakness, numbness or tingling in arms or legs, generalized arthralgias or myalgias, or night sweats. The review of systems is otherwise negative other than for that already noted above, and at least 10 systems have been reviewed. Physical Exam Physical Exam: The patient is awake, alert and oriented 3, well developed and well nourished, normocephalic and atraumatic, lying in bed and in no acute distress. HEENT--PERRL, EOMI, mucous membranes and oropharynx dry. Neck--supple. No JVD. No bruits. Thyroid normal, trachea midline, no adenopathy. Heart--normal S1 and S2. No murmurs, rubs or gallops. Lungs--clear bilaterally, no respiratory distress, no accessory muscle use. Abdomen--normal bowel sounds and soft. Nontender. Nondistended, no hernias or masses, no organomegaly. Extremities--no cyanosis or clubbing. No edema. There are good distal pulses b/l. Dermatologic--normal skin turgor, normal color, no abnormal lymph nodes, no rash. Neurologic--cranial nerves II through XII grossly intact. Rheumatologic--normal range of motion. Psychiatric--normal affect. Results & Data Results & Data Vital Signs (Past 12 Hours) Vital Signs Pulse Pulse Resp BP BP Pulse Ox Pulse Ox 06/01/24 02:30 82 18 117/80 95 06/01/24 00:22 90 19 107/65 94 06/01/24 00:03 95 05/31/24 22:44 79 05/31/24 22:10 79 15 123/70 95 05/31/24 20:36 78 16 124/69 94 05/31/24 19:18 80 16 124/75 95 05/31/24 18:49 105 H 05/31/24 18:45 05/31/24 18:16 95 H 18 103/70 94 O2 Del Method 06/01/24 02:30 06/01/24 00:22 06/01/24 00:03 Room Air 05/31/24 22:44 05/31/24 22:10 Room Air 05/31/24 20:36 Room Air 05/31/24 19:18 05/31/24 18:49 05/31/24 18:45 Room Air 05/31/24 18:16 Laboratory Results Laboratory Results WBC 9.26 K/ul (4.8-10.8) 05/31/24 18:37 RBC 4.72 M/uL (4.70-6.10) 05/31/24 18:37 Hgb 13.0 g/dl (14.0-18.0) L 05/31/24 18:37 Hct 39.5 % (42.0-52.0) L 05/31/24 18:37 MCV 83.7 fL (80.0-100.0) 05/31/24 18:37 MCH 27.5 pg (25.0-34.0) 05/31/24 18:37 MCHC 32.9 g/dL (32.0-36.0) 05/31/24 18:37 RDW Std Deviation 47.2 fL (36.4-46.3) H 05/31/24 18:37 RDW Coeff of Garo 15.7 % (11.5-14.5) H 05/31/24 18:37 Plt Count 266 K/uL (130-400) 05/31/24 18:37 MPV 9.9 fL (9.4-12.4) 05/31/24 18:37 Immature Gran % (Auto) 0.4 % 05/31/24 18:37 Neut % (Auto) 65.3 % 05/31/24 18:37 Lymph % (Auto) 23.3 % 05/31/24 18:37 [place] % (Auto) 8.3 % 05/31/24 18:37 Eos % (Auto) 2.3 % 05/31/24 18:37 Baso % (Auto) 0.4 % 05/31/24 18:37 Neut # (Auto) 6.04 K/uL (1.40-6.50) 05/31/24 18:37 Lymph # (Auto) 2.16 K/uL (1.20-3.40) 05/31/24 18:37 [place] # (Auto) 0.77 K/uL (0.11-0.59) H 05/31/24 18:37 Eos # (Auto) 0.21 K/uL (0.00-0.50) 05/31/24 18:37 Baso # (Auto) 0.04 K/uL (0.00-0.20) 05/31/24 18:37 Immature Gran # (Auto) 0.04 K/uL (0.01-0.20) 05/31/24 18:37 PT 11.5 Seconds (9.0-12.0) 05/31/24 18:37 INR 1.1 (0.9-1.1) 05/31/24 18:37 Sodium 137 mmol/L (136-145) 05/31/24 18:37 Potassium 4.1 mmol/L (3.5-5.1) 05/31/24 18:37 Chloride 104 mmol/L (98-107) 05/31/24 18:37 Carbon Dioxide 23 mmol/L (21-32) 05/31/24 18:37 Anion Gap 10 (3-11) 05/31/24 18:37 BUN 23 mg/dl (6-23) 05/31/24 18:37 Creatinine 1.63 mg/dl (0.6-1.4) H 05/31/24 18:37 Est Cr Clr Drug Dosing Not Reportable 05/31/24 18:37 eGFR 44.49 05/31/24 18:37 BUN/Creatinine Ratio 14.1 (10-20) 05/31/24 18:37 Glucose 246 mg/dl (70-99(Fasting)) H 05/31/24 18:37 Calcium 9.3 mg/dl (8.6-10.3) 05/31/24 18:37 Magnesium 1.5 mg/dl (1.7-2.4) L 05/31/24 18:37 Total Bilirubin 0.5 mg/dl (0.2-1.0) 05/31/24 18:37 AST 14 U/L (13-39) 05/31/24 18:37 ALT 13 U/L (7-52) 05/31/24 18:37 Alkaline Phosphatase 87 U/L (34-104) 05/31/24 18:37 Troponin I High Sens 10.3 pg/ml (0-20) 05/31/24 18:37 B-Natriuretic Peptide 423 pg/ml (0-100) H 05/31/24 18:37 Total Protein 7.3 gm/dl (6.0-8.3) 05/31/24 18:37 Albumin 3.8 gm/dl (3.4-5.0) 05/31/24 18:37 Globulin 3.5 gm/dl (2.5-4.0) 05/31/24 18:37 Albumin/Globulin Ratio 1.1 (0.9-2) 05/31/24 18:37 Lipase 55 U/L (11-82) 05/31/24 18:37 TSH 4.227 uIu/ml (0.300-4.500) 05/31/24 18:37 Urine Color Yellow 06/01/24 01:34 Urine Appearance Clear (Clear) 06/01/24 01:34 Urine pH 5.0 (4.5-7.5) 06/01/24 01:34 Ur Specific [place] 1.008 (1.000-1.030) 06/01/24 01:34 Urine Protein Negative (Negative) 06/01/24 01:34 Urine Glucose (UA) Negative (Negative) 06/01/24 01:34 Urine Ketones Negative (Negative) 06/01/24 01:34 Urine Blood Negative (Negative) 06/01/24 01:34 Urine Nitrite Negative (Negative) 06/01/24 01:34 Urine Bilirubin Negative (Negative) 06/01/24 01:34 Urine Urobilinogen Negative (Negative) 06/01/24 01:34 Ur Leukocyte Esterase Negative (Negative) 06/01/24 01:34 Adenovirus (PCR) Not Detected (NotDetected) 05/31/24 18:41 B. pertussis DNA (PCR) Not Detected (NotDetected) 05/31/24 18:41 B.parapertussis DNA PCR Not Detected (NotDetected) 05/31/24 18:41 C. pneumoniae DNA (PCR) Not Detected (NotDetected) 05/31/24 18:41 Coronavirus OC43 (PCR) Not Detected (NotDetected) 05/31/24 18:41 Coronavirus HKU1 (PCR) Not Detected (NotDetected) 05/31/24 18:41 Coronavirus 229E (PCR) Not Detected (NotDetected) 05/31/24 18:41 SARS-CoV-2 (PCR) Not Detected (NotDetected) 05/31/24 18:41 Coronavirus NL63 (PCR) Not Detected (NotDetected) 05/31/24 18:41 Human Metapneumovir PCR Not Detected (NotDetected) 05/31/24 18:41 Influenza Type A (PCR) Not Detected (NotDetected) 05/31/24 18:41 Influenza Type B (PCR) Not Detected (NotDetected) 05/31/24 18:41 M. pneumoniae (PCR) Not Detected (NotDetected) 05/31/24 18:41 Parainfluenza 1 (PCR) Not Detected (NotDetected) 05/31/24 18:41 Parainfluenza 2 (PCR) Not Detected (NotDetected) 05/31/24 18:41 Parainfluenza 3 (PCR) Not Detected (NotDetected) 05/31/24 18:41 Parainfluenza 4 (PCR) Not Detected (NotDetected) 05/31/24 18:41 RSV (PCR) Not Detected (NotDetected) 05/31/24 18:41 Entero/Rhino (PCR) Not Detected (NotDetected) 05/31/24 18:41 Impressions Chest X-Ray 05/31/24 19:04 Exam(s): XR CXR 1 VIEW EXAM: XR Chest, 1 View CLINICAL HISTORY: sob. TECHNIQUE: Frontal view of the chest. COMPARISON: Chest 2 views 04/12/2024 FINDINGS: Lungs: Minimal curvilinear changes at the left lung base overlying the cardiac silhouette. No focal airspace consolidation. The pulmonary vasculature is unremarkable. Pleural space: Unremarkable. No pneumothorax. No large pleural effusion. Heart: The cardiac silhouette is stable with evidence of aortic valve replacement. Mediastinum: No significant abnormality identified. The trachea is midline. Bones/joints: Stable disruption of several sternal wires, stable. No acute fracture. IMPRESSION: Minimal curvilinear changes at the left lung base overlying the cardiac silhouette, presumed subsegmental atelectasis. No focal airspace consolidation. The pulmonary vasculature is unremarkable. No pleural effusion or pneumothorax. Electronically signed by: Alexi Martinez MD 05/31/24 20:24 PM Code Status & VTE Plan Code Status Full code VTE Prophylaxis Plan VTE Prophylaxis will be ordered: Yes PG Care Time/CCT Total # of Minutes Spent Total Time Spent with Patient: Total time spent is greater than 50% in coordination of care (as documented) at patient's floor/unit and/or counseling patient: Coding Level of Care Code 83802 INT INP/OBS CARE 3/75MIN Diagnoses Acute kidney injury superimposed on CKD N17.9; N18.9 BPH loc w urin obs/LUTS N40.1 HFrEF (heart failure with reduced ejection fraction) I50.20 Hypertension I10 Hyperlipidemia E78.5 Hyperglycemia due to type 2 diabetes mellitus E11.65 Aortic valve disease I35.9 Atrial fibrillation I48.91 Hypomagnesemia E83.42
[2024-06-01] MEDS: SODIUM CHLORIDE 0.9% 1,000 ML IV SCH (03:42)
[2024-06-01] MEDS ORDERED: GLUCOSE 10 TAB/TUBE PO PRN (06:17)
[2024-06-01] MEDS ORDERED: GLUCAGON FOR INJ 1 MG VIAL SQ PRN (06:17)
[2024-06-01] MEDS ORDERED: ONDANSETRON INJ 2 MG/ML 2 ML VIAL IV PRN (06:17)
[2024-06-01] MEDS ORDERED: GLUCOSE 40% GEL 15 GM TUBE PO PRN (06:17)
[2024-06-01] MEDS ORDERED: CARBOHYDRATES FOR HYPOGLYCEMIA PO PRN (06:17)
[2024-06-01] MEDS ORDERED: DEXTROSE 50% 50 ML SYRINGE IV PRN (06:17)
[2024-06-01] MEDS ORDERED: ACETAMINOPHEN 325 MG TAB PO PRN (06:17)
[2024-06-01] MEDS ORDERED: HYDROCODONE/ACETAMOPHEN 5/325MG TAB PO PRN (06:17)
[2024-06-01] MEDS: INSULIN ASPART PER UNIT CHARGE SC SCH (07:41)
[2024-06-01] MEDS: ASPIRIN 81 MG ECTAB PO SCH (08:41)
[2024-06-01] MEDS: ATORVASTATIN 10 MG TAB PO SCH (08:41)
[2024-06-01] MEDS: APIXABAN 5 MG TABLET PO SCH (08:41)
[2024-06-01 09:17] LABS: BUN Creatinine Ratio 18.2 (10-20); Calcium 9.1 mg/dl (8.6-10.3); Creatinine Clr Calc Pharmacy 58.8 ml/min; Magnesium 1.6 mg/dl (1.7-2.4)
[2024-06-01] MEDS: MAGNESIUM SULFATE / D5W 1 GM/100 ML BAG IV SCH (10:16)
[2024-06-01 10:44] LABS: Estimated Average Glucose 174 mg/dl; Hemoglobin A1C 7.7 % (4.5-5.6)
--- NOTE | 2024-06-01 13:28 | Electrocardiogram Report ---
Test Reason : Blood Pressure : */* mmHG Vent. Rate : 97 BPM Atrial Rate : * BPM P-R Int : * ms QRS Dur : 104 ms QT Int : 344 ms P-R-T Axes : * -33 81 degrees QTcB Int : 436 ms Atrial fibrillation Left axis deviation Abnormal ECG No previous ECGs available Confirmed by Osmel Davis ([id number]) on 06/01/2024 1:28:07 PM Referred By: REFERRED SELF Confirmed By: Osmel Davis
--- NOTE | 2024-06-01 14:03 | Hospitalist Progress Note ---
Date of Service June 01, 2024 Assessment & Plan (1) Acute kidney injury superimposed on CKD: Plan: KEL resolving Peak Cr 1.6 Cr 1.3 today baseline Cr 1.1 stop fluids BMP am (2) Atrial fibrillation: Plan: was cardioverted by [facility] in late 03/2024 during his surgery in April for her right TKR it was documented he was in NSR at some point he converted back to a.fib possibly this was contributing to his dyspnea, other symptoms reported typically on metoprolol 100mg daily will restart at 25mg BID and watch his rates overnight cont Eliquis 5mg BID (3) BPH loc w urin obs/LUTS: Plan: typically on flomax for such this is on hold for now (4) HFrEF (heart failure with reduced ejection fraction): Plan: EF 35% on previous echo resume meto succ hold Entresto (pharmacy records show his Entresto dose was increased in early Mar 2024) Entresto increase could have been contributing to dizziness/lightheadedness hold lasix (5) Hypertension: Plan: controlled orthostatic BPs today negative (6) Hyperlipidemia: Plan: cont statin (7) Hyperglycemia due to type 2 diabetes mellitus: Plan: a1c 7.7% cont novolog SSI resume metformin at d/c if Creatinine stable / normal (8) Aortic valve disease: Plan: h/o AVR follows with [facility] (9) Hypomagnesemia: Plan: s/p IV replacement will give additional replacement today repeat mag in am (10) Status post total right knee replacement: Plan: 05/07/24 - Dr Joe Pulido doing well incision well-healed Plan updated by phone this evening Admission and Anticipated Discharge Date Admission Date: June 01, 2024 Subjective tele overnight - a.fib staff checked orthostatic BPs this am - negative staff walked patient in hallway - HRs stayed 100 or less during such patient resting comfortably in bed reports his dizziness is resolved feels good today w/o dyspnea or chest pain right knee feels well ate 100% of breakfast today no diarrhea (had such 2-3 days ago at home) Review of Systems Review of Systems: gen - no fevers or chills cv - no chest pain or orthopnea pulm - no cough GI - no N/V neuro - no vertigo Physical Exam Physical Exam: gen - NAD, looks well neck - no JVD mouth - MMM heart - irregularly irregular, s1 s2, 2/6 systolic murmur LSB lungs - CTA b/l abd - soft NT ND BS+ skin - right TKR incision well-healed, no swelling of R knee ext - no edema, pulses 2+ b/l neuro - strength 5/5 x 4 exts Results & Data Results & Data Vital Signs (Past 12 Hours) Vital Signs Temp Pulse Pulse Resp BP BP Pulse Ox 06/01/24 11:15 37.0 C 16 90/60 L 96 06/01/24 10:43 106 H 110/63 06/01/24 10:43 95 H 91/66 L 06/01/24 10:42 78 95/65 L 06/01/24 08:06 96 H 19 105/56 L 97 06/01/24 08:00 79 06/01/24 08:00 37.0 C 06/01/24 06:18 36.5 C 76 18 118/69 99 06/01/24 06:17 06/01/24 06:00 06/01/24 05:49 60 20 109/78 97 06/01/24 02:30 82 18 117/80 95 Pulse Ox O2 Del Method O2 Del Method 06/01/24 11:15 Room Air 06/01/24 10:43 06/01/24 10:43 06/01/24 10:42 06/01/24 08:06 Room Air 06/01/24 08:00 06/01/24 08:00 06/01/24 06:18 Room Air 06/01/24 06:17 98 Room Air 06/01/24 06:00 Room Air 06/01/24 05:49 Room Air 06/01/24 02:30 Laboratory Results Laboratory Results - last 48 hr 05/31/24 05/31/24 06/01/24 18:37 18:41 01:34 WBC 9.26 RBC 4.72 Hgb 13.0 L Hct 39.5 L MCV 83.7 MCH 27.5 MCHC 32.9 RDW Std Deviation 47.2 H RDW Coeff of Garo 15.7 H Plt Count 266 MPV 9.9 Immature Gran % (Auto) 0.4 Neut % (Auto) 65.3 Lymph % (Auto) 23.3 [place] % (Auto) 8.3 Eos % (Auto) 2.3 Baso % (Auto) 0.4 Neut # (Auto) 6.04 Lymph # (Auto) 2.16 [place] # (Auto) 0.77 H Eos # (Auto) 0.21 Baso # (Auto) 0.04 Immature Gran # (Auto) 0.04 PT 11.5 INR 1.1 Sodium 137 Potassium 4.1 Chloride 104 Carbon Dioxide 23 Anion Gap 10 BUN 23 Creatinine 1.63 H Est Cr Clr Drug Dosing Not Reportable eGFR 44.49 BUN/Creatinine Ratio 14.1 Glucose 246 H POC Glucose Estimat Average Glucose Hemoglobin A1c Calcium 9.3 Magnesium 1.5 L Total Bilirubin 0.5 AST 14 ALT 13 Alkaline Phosphatase 87 Troponin I High Sens 10.3 B-Natriuretic Peptide 423 H Total Protein 7.3 Albumin 3.8 Globulin 3.5 Albumin/Globulin Ratio 1.1 Lipase 55 TSH 4.227 Urine Color Yellow Urine Appearance Clear Urine pH 5.0 Ur Specific [place] 1.008 Urine Protein Negative Urine Glucose (UA) Negative Urine Ketones Negative Urine Blood Negative Urine Nitrite Negative Urine Bilirubin Negative Urine Urobilinogen Negative Ur Leukocyte Esterase Negative Nasal Screen MRSA (PCR) Adenovirus (PCR) Not Detected B. pertussis DNA (PCR) Not Detected B.parapertussis DNA PCR Not Detected C. pneumoniae DNA (PCR) Not Detected Coronavirus OC43 (PCR) Not Detected Coronavirus HKU1 (PCR) Not Detected Coronavirus 229E (PCR) Not Detected SARS-CoV-2 (PCR) Not Detected Coronavirus NL63 (PCR) Not Detected Human Metapneumovir PCR Not Detected Influenza Type A (PCR) Not Detected Influenza Type B (PCR) Not Detected M. pneumoniae (PCR) Not Detected Parainfluenza 1 (PCR) Not Detected Parainfluenza 2 (PCR) Not Detected Parainfluenza 3 (PCR) Not Detected Parainfluenza 4 (PCR) Not Detected RSV (PCR) Not Detected Entero/Rhino (PCR) Not Detected 06/01/24 06/01/24 06/01/24 06:38 07:28 08:47 WBC RBC Hgb Hct MCV MCH MCHC RDW Std Deviation RDW Coeff of Garo Plt Count MPV Immature Gran % (Auto) Neut % (Auto) Lymph % (Auto) [place] % (Auto) Eos % (Auto) Baso % (Auto) Neut # (Auto) Lymph # (Auto) [place] # (Auto) Eos # (Auto) Baso # (Auto) Immature Gran # (Auto) PT INR Sodium 137 Potassium 4.0 Chloride 103 Carbon Dioxide 26 Anion Gap 8 BUN 24 H Creatinine 1.32 D Est Cr Clr Drug Dosing 58.8 eGFR 57.31 BUN/Creatinine Ratio 18.2 Glucose 153 H POC Glucose 72 Estimat Average Glucose 174 Hemoglobin A1c 7.7 H Calcium 9.1 Magnesium 1.6 L Total Bilirubin AST ALT Alkaline Phosphatase Troponin I High Sens B-Natriuretic Peptide Total Protein Albumin Globulin Albumin/Globulin Ratio Lipase TSH Urine Color Urine Appearance Urine pH Ur Specific [place] Urine Protein Urine Glucose (UA) Urine Ketones Urine Blood Urine Nitrite Urine Bilirubin Urine Urobilinogen Ur Leukocyte Esterase Nasal Screen MRSA (PCR) Negative Adenovirus (PCR) B. pertussis DNA (PCR) B.parapertussis DNA PCR C. pneumoniae DNA (PCR) Coronavirus OC43 (PCR) Coronavirus HKU1 (PCR) Coronavirus 229E (PCR) SARS-CoV-2 (PCR) Coronavirus NL63 (PCR) Human Metapneumovir PCR Influenza Type A (PCR) Influenza Type B (PCR) M. pneumoniae (PCR) Parainfluenza 1 (PCR) Parainfluenza 2 (PCR) Parainfluenza 3 (PCR) Parainfluenza 4 (PCR) RSV (PCR) Entero/Rhino (PCR) 06/01/24 06/01/24 06/01/24 11:19 16:13 21:00 WBC RBC Hgb Hct MCV MCH MCHC RDW Std Deviation RDW Coeff of Garo Plt Count MPV Immature Gran % (Auto) Neut % (Auto) Lymph % (Auto) [place] % (Auto) Eos % (Auto) Baso % (Auto) Neut # (Auto) Lymph # (Auto) [place] # (Auto) Eos # (Auto) Baso # (Auto) Immature Gran # (Auto) PT INR Sodium Potassium Chloride Carbon Dioxide Anion Gap BUN Creatinine Est Cr Clr Drug Dosing eGFR BUN/Creatinine Ratio Glucose POC Glucose 106 H 85 108 H Estimat Average Glucose Hemoglobin A1c Calcium Magnesium Total Bilirubin AST ALT Alkaline Phosphatase Troponin I High Sens B-Natriuretic Peptide Total Protein Albumin Globulin Albumin/Globulin Ratio Lipase TSH Urine Color Urine Appearance Urine pH Ur Specific [place] Urine Protein Urine Glucose (UA) Urine Ketones Urine Blood Urine Nitrite Urine Bilirubin Urine Urobilinogen Ur Leukocyte Esterase Nasal Screen MRSA (PCR) Adenovirus (PCR) B. pertussis DNA (PCR) B.parapertussis DNA PCR C. pneumoniae DNA (PCR) Coronavirus OC43 (PCR) Coronavirus HKU1 (PCR) Coronavirus 229E (PCR) SARS-CoV-2 (PCR) Coronavirus NL63 (PCR) Human Metapneumovir PCR Influenza Type A (PCR) Influenza Type B (PCR) M. pneumoniae (PCR) Parainfluenza 1 (PCR) Parainfluenza 2 (PCR) Parainfluenza 3 (PCR) Parainfluenza 4 (PCR) RSV (PCR) Entero/Rhino (PCR) PG Care Time/CCT Total # of Minutes Spent Total Time Spent with Patient: Total time spent is greater than 50% in coordination of care (as documented) at patient's floor/unit and/or counseling patient: Coding Level of Care Code 63797 SUB INP/OBS CARE 3/50MIN Diagnoses Acute kidney injury superimposed on CKD N17.9; N18.9 Atrial fibrillation I48.91 BPH loc w urin obs/LUTS N40.1 HFrEF (heart failure with reduced ejection fraction) I50.20 Hypertension I10 Hyperlipidemia E78.5 Hyperglycemia due to type 2 diabetes mellitus E11.65 Aortic valve disease I35.9 Hypomagnesemia E83.42 Status post total right knee replacement Z96.651
[2024-06-01] MEDS: METOPROLOL SUCC 25MG EXT REL TAB PO SCH ×2 (14:31→21:11)
[2024-06-01 22:17] VITALS: RESP 18
[2024-06-02 06:25] LABS: BUN Creatinine Ratio 19.3 (10-20); Calcium 9.3 mg/dl (8.6-10.3); Creatinine Clr Calc Pharmacy 65.2 ml/min; Magnesium 1.7 mg/dl (1.7-2.4); Potassium 4.5 mmol/L (3.5-5.1)
[2024-06-02] MEDS: MAGNESIUM OXIDE 400 MG TAB PO SCH (08:22)
[2024-06-02 11:22] VITALS: PULSE 89; O2SAT 94
[2024-06-02 11:31] VITALS: BP 117/80; TEMP 97.9
--- NOTE | 2024-06-02 15:44 | Discharge Summary ---
Discharge Summary Date of Service June 02, 2024 Principal Dx & Hospital Course #1 = Principal Diagnosis (1) Acute kidney injury superimposed on CKD: KEL resolving Peak Cr 1.6 Cr 1.3 today baseline Cr 1.1 stop fluids BMP am (2) Atrial fibrillation: was cardioverted by [facility] in late 03/2024 during his surgery in April for her right TKR it was documented he was in NSR at some point he converted back to a.fib possibly this was contributing to his dyspnea, other symptoms reported typically on metoprolol 100mg daily will restart at 25mg BID and watch his rates overnight cont Eliquis 5mg BID (3) BPH loc w urin obs/LUTS: typically on flomax for such this is on hold for now (4) HFrEF (heart failure with reduced ejection fraction): EF 35% on previous echo resume meto succ hold Entresto (pharmacy records show his Entresto dose was increased in early Mar 2024) Entresto increase could have been contributing to dizziness/lightheadedness hold lasix (5) Hypertension: controlled orthostatic BPs today negative (6) Hyperlipidemia: cont statin (7) Hyperglycemia due to type 2 diabetes mellitus: a1c 7.7% cont novolog SSI resume metformin at d/c if Creatinine stable / normal (8) Aortic valve disease: h/o AVR follows with [facility] (9) Hypomagnesemia: s/p IV replacement will give additional replacement today repeat mag in am (10) Status post total right knee replacement: 05/07/24 - Dr Joe Pulido doing well incision well-healed Plan updated by phone this evening Admission HPI Per Admitting Provider The patient is a 73-year-old male with history including status post right total knee arthroplasty on 05/07/2024, BPH with LUTS, hyperlipidemia, hypertension, diabetes mellitus type 2, HFrEF with ejection fraction 35%, status post AVR and GERD. The patient presents to the emergency department with symptoms as noted above. He reports that he has recovered well from his recent right knee replacement surgery. Significant laboratory workup in the emergency department included a creatinine 1.63, with base 1.15, magnesium of 1.5, and a glucose of 246. Bio[employer] testing was negative, urinalysis was negative Discharge Exam gen - NAD, looks well neck - no JVD mouth - MMM heart - irregularly irregular, s1 s2, 2/6 systolic murmur LSB lungs - CTA b/l abd - soft NT ND BS+ skin - right TKR incision well-healed, no swelling of R knee ext - no edema, pulses 2+ b/l neuro - strength 5/5 x 4 exts Discharge Plan Discharge Items Patient Disposition: Home - Self-Care Reason For Visit: HYPOTENSION, DEHYDRATION Discharge Diagnosis: 1. hypotension (mildly low blood pressure) - resolved 2. dehydration - resolved 3. acute kidney injury - resolved 4. low magnesium - resolved 5. dizziness - likely due to low blood pressure & dehydration - resolved 6. recurrent atrial fibrillation -- follow-up with [facility] as soon as possible 7. recent right knee replacement 8. cardiomyopathy/congestive heart failure - under good control Activity: Resume your previous activity Non-emergency contact: Primary Care Provider and Interventional Tech Call non-emergency contact if: you have any medication questions and your symptoms worsen Follow-up/Referrals: Tonio Sauer [Staff Physician] - (see [facility] as soon as possible (1-2 weeks) to discuss treatment options for a.fib ) Drake Baker PA-C [Primary Care Provider] - (within 5-7 days ) Diet: Carb Consistent or DM2 and Heart Healthy Fluids: 1800ml (7 cups) Addtl Attending Provider Instructions: Mr Garzon, You were hospitalized due to recent dizziness and simply feeling unwell. At time of admission we found that your creatinine (kidney number) in the blood was elevated suggestive of mild dehydration. Your magnesium level was also low and your blood pressure was mildly low. In addition, when you arrived here you were back in atrial fibrillation. During your surgery in April you were back in normal rhythm. Thus, you went back into atrial fibrillation sometime between your surgery and the time you came back this admission. Fortunately your atrial fibrillation is under good control at this time. Recommendations - 1. Continue your metoprolol succinate, but take as follows -- * Break the 100mg tablet in half and take 1/2 tablet (50mg) in the morning and 1/2 tablet (50mg) in the evening; start this tonight 2. HOLD your Entresto heart medicine 3. TAKE magnesium oxide 400mg once daily; I've called a prescription to your pharmacy for you; you can start this tomorrow 4. Check your weight every morning on the same scale. Write your weights down in a notebook. Call your hand endband cutter if you gain more than 2-3 pounds over a 1-2 day period. This is often a sign of fluid weight gain from your cardiomyopathy/heart failure. 5. See your hand endband cutter within 1-2 weeks. If you desire we do have a hand endband cutter that goes to the [facility] office a few times each month. Talk to your family doctor about switching if you desire. OTHERWISE see [facility] as soon as possible in the next 1-2 weeks. Follow-up - see separate section Return to [facility] if - * you feel dizzy or lightheaded * you have chest pains * you have shortness of breath * your notice that your heart rate is consistently over 100 beats per minute (you can measure your heart rate by using a blood pressure cuff at home; most blood pressure cuffs have a heart rate reading with it) * any other concerns It was our pleasure to care for you! -Dr Davis Pending Studies at Discharge: No Stand-Alone Forms: My [facility], Smoking Cessation Medications and DC Order Prescriptions: New magnesium oxide 400 mg (241.3 mg magnesium) Tablet 400 mg PO QAM Qty: 30 5RF Continued hydrocodone-acetaminophen 5-325 mg tablet 1 tab PO Q6H PRN (Reason: pain) Qty: 20 0RF atorvastatin 10 mg tablet 10 mg PO QAM glipizide 10 mg Tablet 10 mg PO QAM omeprazole 40 mg Capsule,Delayed Release(Dr/Ec) 40 mg PO BID tamsulosin 0.4 mg Capsule 0.4 mg PO QAM metformin 1,000 mg Tablet 1,000 mg PO BID Tradjenta 5 mg tablet 5 mg PO QAM aspirin 81 mg Capsule 81 mg PO QAM Eliquis 5 mg Tablet 5 mg PO BID furosemide 20 mg Tablet 20 mg PO DAILY PRN (Reason: leg edema) oxycodone 5 mg Tablet 5 mg PO Q4H PRN (Reason: pain) Qty: 30 0RF Changed metoprolol succinate 100 mg tablet extended release 24 hr 50 mg PO BID Qty: 0 0RF Held Entresto 24-26 mg tablet 1 tab PO BID Hold Instructions: HOLD until you see your hand endband cutter Discharge Orders: Discharge Order (Routine); Ordered 06/02/24 Ordered By: Moshe Davis Admission Data Admit Date/Time: 06/01/24 03:04 Attending Provider: Moshe Davis Admit Provider: Tremaine Villanueva Primary Care Provider: Drake Baker Other Providers: Tremaine Villanueva Hospital Stay Data Consultations 06/01/24 02:27 ED Decision to Admit Stat Pending Results Patient Have Any Pending Studies at Discharge: No Discharge Instructions Given to Patient (Per Discharging Provider) Mr Garzon, Brennan were hospitalized due to recent dizziness and simply feeling unwell. At time of admission we found that your creatinine (kidney number) in the blood was elevated suggestive of mild dehydration. Your magnesium level was also low and your blood pressure was mildly low. In addition, when you arrived here you were back in atrial fibrillation. During your surgery in April you were back in normal rhythm. Thus, you went back into atrial fibrillation sometime between your surgery and the time you came back this admission. Fortunately your atrial fibrillation is under good control at this time. Recommendations - 1. Continue your metoprolol succinate, but take as follows -- * Break the 100mg tablet in half and take 1/2 tablet (50mg) in the morning and 1/2 tablet (50mg) in the evening; start this tonight 2. HOLD your Entresto heart medicine 3. TAKE magnesium oxide 400mg once daily; I've called a prescription to your pharmacy for you; you can start this tomorrow 4. Check your weight every morning on the same scale. Write your weights down in a notebook. Call your hand endband cutter if you gain more than 2-3 pounds over a 1-2 day period. This is often a sign of fluid weight gain from your cardiomyopathy/heart failure. 5. See your hand endband cutter within 1-2 weeks. If you desire we do have a hand endband cutter that goes to the [facility] office a few times each month. Talk to your family doctor about switching if you desire. OTHERWISE see [facility] as soon as possible in the next 1-2 weeks. Follow-up - see separate section Return to [facility] if - * you feel dizzy or lightheaded * you have chest pains * you have shortness of breath * your notice that your heart rate is consistently over 100 beats per minute (you can measure your heart rate by using a blood pressure cuff at home; most blood pressure cuffs have a heart rate reading with it) * any other concerns It was our pleasure to care for you! -Dr Davis Coding Diagnoses Acute kidney injury superimposed on CKD N17.9; N18.9 Atrial fibrillation I48.91 BPH loc w urin obs/LUTS N40.1 HFrEF (heart failure with reduced ejection fraction) I50.20 Hypertension I10 Hyperlipidemia E78.5 Hyperglycemia due to type 2 diabetes mellitus E11.65 Aortic valve disease I35.9 Hypomagnesemia E83.42 Status post total right knee replacement Z96.651
== END 2024-06-02 16:28 | disposition home or self-care (01) ==
LOC: 1E 18:10 → ED 18:10 → SUATTDRO 06-01 03:04 → 1E 06-01 05:49 → 2S 06-01 21:24